=== PATIENT | male | born 1975 | race American Indian/Alaskan Native ===

== ENCOUNTER 2022-01-21 19:39 | Emergency (ER) | payer OTHER ==
[2022-01-21 20:03] VITALS: BP 133/93
[2022-01-21] MEDS ORDERED: AMOXICILLIN/K CLAV 875/125MG TAB PO ONE (21:47)
[2022-01-21] MEDS ORDERED: KETOROLAC 60 MG/2 ML INJ IM ONE (21:47)
[2022-01-21] MEDS ORDERED: dexAMETHasone 20 MG/5 ML VIAL IM ONE (21:47)
[2022-01-21] MEDS ORDERED: HYDROcodone/ACETAMINOPHEN 5-325 MG TAB PO ONE (21:48)
[2022-01-21] MEDS ORDERED: ONDANSETRON 4 MG ODT TAB PO ONE (21:48)
--- NOTE | 2022-01-21 22:10 | Emergency Department Report ---
ED General Adult HPI - General Chief complaint: Sore Throat Stated complaint: MASS ON THROAT-REFERRED BY URGENT CARE Source: patient Mode of arrival: Ambulatory Limitations: No Limitations - History of Present Illness Initial comments: Patient is a 46-year-old -[place] male with no past medical history presents to the ED with complaint of acute onset persistent painful swollen right-sided anterior cervical lymph nodes, swollen painful sublingual lymph nodes, dysphagia and sore throat with right mandibular pain for the last 3 days, worse in the last 12 hours. Patient states that he has not been able to eat anything because of worsening pain. Patient denies fever, chills, headache, dizziness, syncope, traumatic injury, ear pain, cough, nasal and sinus congestion, chest pain or shortness of breath or nausea and vomiting. MD Complaint: Sore throat; swollen anterior lymph nodes; right mandibular pain -: Sudden, days(s) (3) Location: face Radiation: non-radiation Quality: aching, sharp Consistency: constant Improves with: none Worsens with: none Associated Symptoms: denies other symptoms. denies: chest pain, cough, diaphoresis, loss of appetite, malaise, nausea/vomiting, rash, seizure, shortness of breath, syncope, weakness Treatments Prior to Arrival: none - Related Data Previous Rx's Medication Instructions Recorded Last Taken Type Amoxicillin/Potassium Clav 1 each PO Q12H #20 tab 01/21/22 Unknown Rx [Augmentin 875-125 Tablet] Ibuprofen [Motrin] 800 mg PO Q8HR PRN #30 tablet 01/21/22 Unknown Rx predniSONE [Deltasone] 40 mg PO QDAY #10 tab 01/21/22 Unknown Rx Allergies Allergy/AdvReac Type Severity Reaction Status Date / Time No Known Allergies Allergy Verified 01/21/22 21:54 ED Review of Systems ROS: Stated complaint: MASS ON THROAT-REFERRED BY URGENT CARE Other details as noted in HPI Constitutional: denies: chills, fever Eyes: denies: eye pain, eye discharge, vision change ENT: throat pain, other (swollen painful right anterior cervical lymphadenopathy). denies: ear pain Respiratory: denies: cough, shortness of breath, wheezing Cardiovascular: denies: chest pain, palpitations Endocrine: no symptoms reported Gastrointestinal: denies: abdominal pain, nausea, diarrhea Genitourinary: denies: urgency, dysuria Musculoskeletal: denies: back pain, joint swelling, arthralgia Skin: denies: rash, lesions Neurological: denies: headache, weakness, paresthesias Psychiatric: denies: anxiety, depression Hematological/Lymphatic: denies: easy bleeding, easy bruising ED Past Medical Hx - Past Medical History Previous Medical History?: No - Surgical History Past Surgical History?: No - Medications Home Medications: Home Medications Medication Instructions Recorded Confirmed Last Taken Type Amoxicillin/Potassium Clav 1 each PO Q12H #20 tab 01/21/22 Unknown Rx [Augmentin 875-125 Tablet] Ibuprofen [Motrin] 800 mg PO Q8HR PRN #30 tablet 01/21/22 Unknown Rx predniSONE [Deltasone] 40 mg PO QDAY #10 tab 01/21/22 Unknown Rx ED Physical Exam - General Limitations: No Limitations General appearance: alert, in no apparent distress - Head Head exam: Present: atraumatic, normocephalic, normal inspection - Eye Eye exam: Present: normal appearance, PERRL, EOMI Pupils: Present: normal accommodation - ENT ENT exam: Present: mucous membranes moist, TM's normal bilaterally, normal external ear exam, other (Swollen, tender anterior right cervical lymphadenopathy and sublingual saliva gland) - Neck Neck exam: Present: normal inspection, full ROM, lymphadenopathy (Swollen, tender right anterior cervical lymphadenopathy with swollen sublingual saliva glands). Absent: tenderness, meningismus - Respiratory Respiratory exam: Present: normal lung sounds bilaterally. Absent: respiratory distress, wheezes, rales, rhonchi, chest wall tenderness, accessory muscle use, decreased breath sounds, prolonged expiratory - Cardiovascular Cardiovascular Exam: Present: regular rate, normal rhythm, normal heart sounds. Absent: systolic murmur, diastolic murmur, rubs, gallop - GI/Abdominal GI/Abdominal exam: Present: soft, normal bowel sounds. Absent: distended, tenderness, rebound, hyperactive bowel sounds - Rectal Rectal exam: Present: deferred - Extremities Exam Extremities exam: Present: normal inspection, full ROM, normal capillary refill - Back Exam Back exam: Present: normal inspection, full ROM. Absent: CVA tenderness (L), muscle spasm, paraspinal tenderness, vertebral tenderness - Neurological Exam Neurological exam: Present: alert, oriented X3, CN II-XII intact, normal gait, reflexes normal - Psychiatric Psychiatric exam: Present: normal affect, normal mood - Skin Skin exam: Present: warm, dry, intact, normal color. Absent: rash ED Course Vital Signs 01/21/22 20:02 Temperature 99.4 F Pulse Rate 78 Respiratory 18 Rate Blood Pressure 133/93 O2 Sat by Pulse 99 Oximetry ED Medical Decision Making - Medical Decision Making This is a 46-year-old -Mal[place] male with no past medical history presents to the ED with complaint of acute onset persistent painful swollen right-sided anterior cervical lymph nodes, swollen painful sublingual lymph nodes, dysphagia and sore throat with right mandibular pain for the last 3 days, worse in the last 12 hours. Patient states that he has not been able to eat anything because of worsening pain. In the ED, patient is alert and oriented x3 and is not in any distress. Patient was treated for pain in the ED and also given initial oral antibiotics. On reevaluation, patient's pain is well controlled medication. Patient was discharged home on medications and advised to follow-up with his primary care physician in 7 to 10 days for reevaluation. Return to the ED immediately if symptoms get worse. - Differential Diagnosis Sialodenitis; lymphadenopathy; dental abscess; pharyngitis; gingivitis Critical care attestation.: If time is entered above; I have spent that time in minutes in the direct care of this critically ill patient, excluding procedure time. ED Disposition Clinical Impression: Acute bacterial sialadenitis, Anterior cervical lymphadenopathy Disposition: HOME / SELF CARE / HOMELESS Is pt being admited?: No Does the pt Need Aspirin: No Condition: Stable Instructions: Salivary Gland Infection, Lymphadenopathy Additional Instructions: Your symptoms are likely due to an infected sublingual salivary gland or lymphadenopathy. Therefore take medication with food, drink plenty fluids and follow-up with your primary care physician in 7 to 10 days for reevaluation. Return to the ED immediately if symptoms get worse. Prescriptions: Amoxicillin/Potassium Clav [Augmentin 875-125 Tablet] 1 each PO Q12H #20 tab predniSONE [Deltasone] 40 mg PO QDAY #10 tab Ibuprofen [Motrin] 800 mg PO Q8HR PRN #30 tablet PRN Reason: Pain , Severe (7-10) Referrals: [facility] [Provider Group] - 3-5 Days Time of Disposition: 22:12 Print Language: GREENLAND[place]
== END 2022-01-21 23:00 | disposition home or self-care (01) ==
LOC: ED 19:39
DX: K11.21 Acute sialoadenitis (principal); L04.0 Acute lymphadenitis of face, head and neck
CPT/HCPCS: 96372; 99282; J1100; J1885; J3490; Q0162